=== PATIENT | male | born 1980 | race Caucasian/White ===

== ENCOUNTER 2017-01-05 00:10 | Emergency (ER) | payer BC ==
[2017-01-05 00:23] VITALS: BP 137/91; BMI 22.4
--- NOTE | 2017-01-05 00:49 | DR.GENAD ---
HPI - PCP Primary Care Physician: BIANCA GARCIA - HPI Comment HPI Comment: PATIENT IS TAKING MED FOR H PYLORI. TONIGHT PAIN WAS VERY SEVERE. PCP WAS CONERN HE MAY HAVE ACUTE ABDOMEN. NO FEVER. NAUSEATED BUT NOT VOMITING. - Complaint/Symptoms Chief Complaint Doctors Comments: ABDOMINAL PAIN. Chief Complaint:: ABD PAIN DX WITH H-PYLORI TUESDAY PLACED ON BIAXIN NEXIUM , FLAGYL PT STATES" AFTER I STARTED THIS MEDICINE IT INCREADED MY PAIN BY 60%. I CALL [facility] SHE TOLD ME TO COME TO THE ER BECAUSE I MAY HAVE A BAD GALLBLADDER OR AND ULCER OR SOMETHING" - Nurses notes reviewed Nurses Notes Review: Yes - Source History Provided: Patient - Mode of Arrival Mode of Arrival: Ambulatory - Timing Onset of Chief Complaint: 01/03/17 Came on: Suddenly - Duration Duration: Since Onset Duration: Days - Severity Severity: Moderate PMH - PMH Past Medical History: Yes Past Medical History: GERD Past Surgical History: No - Family History History of Family Medical Conditions: Yes Family Medical History: Diabetes Mellitus, Cancer, Hypertension - Social History Alcohol Use: None Do you use any recreational Drugs:: No Lives With: Family Lives Where: Home - infectious screening In the last 2 months have you had wt loss of >10#?: NO Have you had fever, night sweats or hemotysis?: No Have you traveled outside the country in the last 6 months?: No Isolation: Standard ROS - Review of Systems Constitutional: Loss of Appetite Eyes: negative: Eye Pain, Discharge ENTM: No Symptoms Reported. negative: Ear Pain, Nose Discharge, Nose Congestion , Throat Pain Respiratoy: No Symptoms Reported. negative: Productive Cough, Non-Productive Cough, Short of Breath, Wheezing, Hemoptysis Cardiovascular: No Symptoms Reported. negative: Chest Pain Gastrointestinal/Abdominal: Abdominal Pain, Nausea Genitourinary: No Symptoms Reported. negative: Dysuria, Frequency, Hematuria Musculoskeletal: No Symptoms Reported Integumentary: No Symptoms Reported Hematologic/Lymphatic: No Symptoms Reported Endocrine: No Symptoms Reported All Other Systems: Reviewed and Negative PE - Vital Signs Vitals: Temperature 98.2 F Pulse Rate 68 Respiratory Rate 18 Blood Pressure 137/91 O2 Sat by Pulse Oximetry 97 - General Limitations: No Limitations General Appearance: Alert - Head Head Exam: Normal Inspection - Eyes Eye exam: Normal Appearance - ENT ENT Exam: Normal External Ear Exam External Ear Exam: Normal External Inspection TM/Canal Exam: Bilateral Normal Nose Exam: Normal Nose Exam Mouth Exam: Normal Inspection Throat Exam: Normal Inspection - Neck Neck Exam: Trachea Midline - Chest Chest Inspection: Symmetric Chest Wall Rise - Respiratory Respiratory Exam: Normal Lung Sounds Bilat Respiratory Exam: Bilateral Clear to Auscultation - Cardiovascular Cardiovascular Exam: Regular Rate, Normal Rhythm, Normal Heart Sounds - Abdominal Exam Abdominal Exam: Normal Bowel Sounds, Distention, Tenderness Abdominal Tenderness: Diffuse, Moderate - Extremities Extremities Exam: Normal Inspection - Back Back Exam: Normal Inspection - Neurologic Neurological Exam: Alert, Oriented X3, CN II-XII Intact - Psychiatric Psychiatric Exam: Normal Affect, Normal Mood - Skin Skin Exam: Normal Color MDM - Differential Diagnosis Differential Diagnosis: ABDOMINAL PAIN, BOWEL OBSTRUCTION, DIVERTICULITIS, PUD Course - Treatment Treatment: SEE ORDERS. PATIENT SIGN OUT AMA BEFORE REPORT WAS COMPLETED. ROR - Labs Reviewed Laboratory Results Reviewed?: Yes Result Diagrams: 01/05/17 00:55 01/05/17 00:55 Laboratory: WBC 5.8 X10^3/uL (3.6-10.0) 01/05/17 00:55 RBC 4.57 X10^6/uL (4.7-6.0) L 01/05/17 00:55 Hgb 13.5 g/dL (13.5-18.0) 01/05/17 00:55 Hct 39.1 % (42.0-54.0) L 01/05/17 00:55 MCV 85.7 fL (80.0-100.0) 01/05/17 00:55 MCH 29.6 pg (27.0-34.0) 01/05/17 00:55 MCHC 34.6 g/dL (33.0-35.0) 01/05/17 00:55 RDW 12.7 % (11.6-16.5) 01/05/17 00:55 Plt Count 295 X10^3/uL (150.0-450.0) 01/05/17 00:55 MPV 7.0 fL (7.4-11.0) L 01/05/17 00:55 Neut % 47.0 % (42.0-75.0) 01/05/17 00:55 Lymph % 37.6 % (21.0-51.0) 01/05/17 00:55 Hyde % 9.8 % (0.0-13.0) 01/05/17 00:55 Eos % 4.9 % (0.9-2.9) H 01/05/17 00:55 Baso % 0.7 % (0.2-1.0) 01/05/17 00:55 Neut # 2.7 x10^3/uL (2.2-4.8) 01/05/17 00:55 Lymph # 2.2 X10^3/uL (1.3-2.9) 01/05/17 00:55 Hyde # 0.6 x10^3/uL (0.3-0.8) 01/05/17 00:55 Eos # 0.3 x10^3/uL (0.0-0.2) H 01/05/17 00:55 Baso # 0.0 X10^3/uL (0.0-0.1) 01/05/17 00:55 Absolute Nucleated RBC 0.0 /100WBC 01/05/17 00:55 Sodium 141 mmol/L (136-145) 01/05/17 00:55 Corrected Sodium TNP 01/05/17 00:55 Potassium 4.2 mmol/L (3.5-5.1) 01/05/17 00:55 Chloride 104 mmol/L (98-107) 01/05/17 00:55 Carbon Dioxide 30.5 mmol/L (21-32) 01/05/17 00:55 BUN 12 mg/dL (7-18) 01/05/17 00:55 Creatinine 1.38 mg/dL (0.70-1.30) H 01/05/17 00:55 Est GFR (MDRD) Af Amer > 60 (>60) 01/05/17 00:55 Est GFR (MDRD) Non-Af > 60 (>60) 01/05/17 00:55 Glucose 91 mg/dL (65-99) 01/05/17 00:55 Calcium 8.7 mg/dL (8.5-10.1) 01/05/17 00:55 Corrected Calcium TNP 01/05/17 00:55 Total Bilirubin 0.40 mg/dL (0.2-1.0) 01/05/17 00:55 AST 21 Units/L (15-37) 01/05/17 00:55 ALT 34 Units/L (12-78) 01/05/17 00:55 Alkaline Phosphatase 57 Units/L (46-116) 01/05/17 00:55 Total Protein 6.9 g/dL (6.4-8.2) 01/05/17 00:55 Albumin 3.7 g/dL (3.4-5.0) 01/05/17 00:55 Globulin 3.2 g/dL (2.5-4.5) 01/05/17 00:55 Albumin/Globulin Ratio 1.2 Ratio (1.1-2.1) 01/05/17 00:55 Amylase 56 Units/L (25-115) 01/05/17 00:55 Lipase 91 Units/L (73-393) 01/05/17 00:55 Specimen Type Clean catch urine 01/05/17 01:10 Urine Color Yellow (YELLOW) 01/05/17 01:10 Urine Appearance Clear (CLEAR) 01/05/17 01:10 Urine pH 6.5 (5.0 - 8.0) 01/05/17 01:10 Ur Specific [place] 1.015 (1.000-1.030) 01/05/17 01:10 Urine Protein Negative (NEGATIVE) 01/05/17 01:10 Urine Glucose (UA) Negative (NEGATIVE) 01/05/17 01:10 Urine Ketones Negative (NEGATIVE) 01/05/17 01:10 Urine Occult Blood Negative (NEGATIVE) 01/05/17 01:10 Urine Nitrite Negative (NEGATIVE) 01/05/17 01:10 Urine Bilirubin Negative (NEGATIVE) 01/05/17 01:10 Urine Urobilinogen 1+ (NORMAL) 01/05/17 01:10 Ur Leukocyte Esterase Negative (NEGATIVE) 01/05/17 01:10 Urine RBC None seen /HPF (NEGATIVE) 01/05/17 01:10 Urine WBC None seen /HPF (NEGATIVE) 01/05/17 01:10 Ur Squamous Epith Cells Rare /HPF (NEGATIVE) 01/05/17 01:10 Urine Bacteria Negative /HPF (NEGATIVE) 01/05/17 01:10 Ur Culture Indicated? No/not indicated 01/05/17 01:10 - XRAY XRAY Interpreted by: Radiologist XRAY Findings: REPORT NOTED. - Diagnosis Discharge Problem: Abdominal pain Qualifiers: Abdominal location: upper abdomen, unspecified Qualified Code(s): R10.10 - Upper abdominal pain, unspecified - Discharge Plan Disposition: 07 AGAINST MEDICAL ADVICE Condition: Stable - Follow ups/Referrals Follow ups/Referrals: BIANCA GARCIA [Primary Care Provider] - 3 days - Instructions
[2017-01-05 01:04] LABS: BASOPHILS % (AUTO) 0.7 % (0.2-1.0); EOSINOPHILS # (AUTO) 0.3 x10^3/uL (0.0-0.2); EOSINOPHILS % (AUTO) 4.9 % (0.9-2.9); HEMATOCRIT 39.1 % (42.0-54.0); HEMOGLOBIN 13.5 g/dL (13.5-18.0); LYMPHOCYTES # (AUTO) 2.2 X10^3/uL (1.3-2.9); LYMPHOCYTES % (AUTO) 37.6 % (21.0-51.0); MEAN CORPUSCULAR HEMOGLOBIN 29.6 pg (27.0-34.0); MEAN CORPUSCULAR HGB CONC 34.6 g/dL (33.0-35.0); MEAN CORPUSCULAR VOLUME 85.7 fL (80.0-100.0); MONOCYTES # (AUTO) 0.6 x10^3/uL (0.3-0.8); MONOCYTES % (AUTO) 9.8 % (0.0-13.0); NEUTROPHILS # (AUTO) 2.7 x10^3/uL (2.2-4.8); PLATELET COUNT 295 X10^3/uL (150.0-450.0); RED BLOOD COUNT 4.57 X10^6/uL (4.7-6.0); RED CELL DISTRIBUTION WIDTH 12.7 % (11.6-16.5); WHITE BLOOD COUNT 5.8 X10^3/uL (3.6-10.0)
[2017-01-05 01:12] LABS: ALANINE AMINOTRANSFERASE 34 Units/L (12-78); ALBUMIN 3.7 g/dL (3.4-5.0); ALKALINE PHOSPHATASE 57 Units/L (46-116); AMYLASE 56 Units/L (25-115); ASPARTATE AMINO TRANSFERASE 21 Units/L (15-37); BLOOD UREA NITROGEN 12 mg/dL (7-18); CALCIUM 8.7 mg/dL (8.5-10.1); CARBON DIOXIDE 30.5 mmol/L (21-32); CHLORIDE 104 mmol/L (98-107); CREATININE 1.38 mg/dL (0.70-1.30); LIPASE 91 Units/L (73-393); SODIUM 141 mmol/L (136-145); TOTAL PROTEIN 6.9 g/dL (6.4-8.2); eGFR BLACK RACES > 60 (>60); eGFR NON BLACK RACES > 60 (>60)
[2017-01-05 01:24] LABS: BILIRUBIN,URINE NEGATIVE (NEGATIVE); BLOOD/HEMOGLOBIN,URINE NEGATIVE (NEGATIVE); GLUCOSE, URINE NEGATIVE (NEGATIVE); KETONES,URINE NEGATIVE (NEGATIVE); LEUKOCYTE ESTERASE ,URINE NEGATIVE (NEGATIVE); NITRITES,URINE NEGATIVE (NEGATIVE); PH,URINE 6.5 (5.0 - 8.0); PROTEIN,URINE NEGATIVE (NEGATIVE); UROBILINOGEN,URINE 1+ (NORMAL)
[2017-01-05 01:29] LABS: COLOR,URINE YELLOW (YELLOW)
[2017-01-05 01:30] LABS: APPEARANCE,URINE CLEAR (CLEAR); BACTERIA,URINE NEGATIVE /HPF (NEGATIVE); RBC,URINE NONE SEEN /HPF (NEGATIVE); SQUAMOUS EPITHELIAL CELL,UR RARE /HPF (NEGATIVE)
--- NOTE | 2017-01-05 03:27 | CT ---
CT abdomen and pelvis without contrast Indication: Abdominal pain Comparison: None available Technique: Multiple axial images of the abdomen and pelvis were obtained from the lung bases to the pubic symphy sis without the administration of IV contrast. Coronal and sagittal images were also provided. Radiation dose reduction techniques were performed utilizing adjustment for MA/kVP based on patient body size. Findings: Overall examination is limited in detection of acute inflammatory change or malignancy of the solid o r visceral organs of the abdomen and pelvis given lack of IV contrast administration. The visualized portions of the lung bases are unremarkable. The bony structures are grossly intact. Given the limitations of lack of IV contrast administration the liver (aside for focal fatty infiltra tion adjacent to the falciform ligament), gallbladder, spleen, pancreas, and adrenal glands are unrem arkable in their CT appearance. No evidence of stone within either kidney or ureter. No hydronephrosis is identified. No bowel wall thickening or bowel dilatation is present. The colon and rectum are unremarkable. The urinary bladder is grossly unremarkable. The appendix is normal. Prostate gland is also normal. No mesenteric lymphadenopathy or stranding can be observed. No free fluid or free air is seen within the abdomen. IMPRESSION: 1. No acute inflammatory process within the abdomen or pelvis given the limitations of a noncontrast examination. Reported By:
== END 2017-01-05 03:05 | disposition left against medical advice (07) ==
LOC: ER 00:10
DX: R10.10 Upper abdominal pain, unspecified (principal)
CPT/HCPCS: 36415; 74176; 80053; 81001; 82150; 83690; 85025; 99283

== ENCOUNTER → 2017-05-27 | Outpatient (CLI) | payer BC ==
--- NOTE | 2017-05-27 09:37 | US ---
HISTORY: Right upper quadrant pain for 1 month. Study: Right upper quadrant ultrasound: Multiplanar ultrasonographic examination of the right upper abdominal quadrant was performed. Comparison: CT scan from 01/05/2017 Findings: The liver is of normal size, echogenicity and echotexture. No evidence of intrahepatic biliary duct dilatation is noted. Vascular flow is normal. The gallbladder shows no evidence of gallstones, krystal cholecystic fluid or gallbladder wall thickening. The common bile duct is normal at 3.6 mm. The rig ht kidney is of normal size, echogenicity and echotexture measuring 10.0 cm in length by 3.8 x 5.7 cm . The pancreas is inadequately visualized. The inferior vena cava as visualized is normal. IMPRESSION: 1. Negative right upper quadrant ultrasound. Reported By:
== END ==
LOC: RAD 08:44
PROVIDERS: ATTEND Psychiatry & Neurology Neurology
DX: R10.84 Generalized abdominal pain (principal); R14.0 Abdominal distension (gaseous); Z87.19 Personal history of other diseases of the digestive system
CPT/HCPCS: 76705